=== PATIENT | male | born 1980 | race Caucasian/White ===

== ENCOUNTER 2023-05-01 19:31 | Emergency (ER) | payer BC ==
[~2023-05-01] VITALS: Ht 175.3 cm; Wt 86.2 kg
[2023-05-01] MEDS ORDERED: METHADONE (20:18)
[2023-05-01 21:58] LABS: HEMATOCRIT 40.9 % (39.0-48.0); HEMOGLOBIN 14.3 g/dL (13-16.00); MEAN CELL VOLUME 86.2 fL (80.0-100.00); MEAN CORPUSCULAR HEMOGLOBIN 30.1 pg (27.00-32.0); PLATELET COUNT 176 K/uL (150-450); RED BLOOD COUNT 4.74 M/uL (4.00-6.00); RED CELL DISTRIBUTION WIDTH 12.9 % (11.5-14.5)
[2023-05-01 22:27] LABS: ALBUMIN 3.6 gm/dL (3.4-5.0); BILIRUBIN TOTAL 0.34 mg/dL (0.3-1.2); CALCIUM 8.8 mg/dL (8.5-10.1); CREATININE SERUM 1.06 mg/dL (0.70-1.30); GFR 75.9; POTASSIUM 3.59 mEq/L (3.5-5.1); TOTAL PROTEIN 7.6 gm/dL (6.4-8.2)
== END 2023-05-02 03:27 | disposition home or self-care (01) ==
LOC: ER 19:32
PROVIDERS: General Practice
DX: K29.70 Gastritis, unspecified, without bleeding (principal); I10 Essential (primary) hypertension; Z20.822 Contact with and (suspected) exposure to COVID-19